=== PATIENT | male | born 2000 ===

== ENCOUNTER 2025-10-27 12:22 | Emergency (ER) | payer MEDICAID, OTHER ==
[~2025-10-27] VITALS: Ht 188 cm; Wt 180.0 kg
[2025-10-27 12:28] VITALS: O2SAT 99
[2025-10-27 14:44] VITALS: TEMP 36.6
[2025-10-27 15:30] LABS: CREATININE 0.6 mg/dL (0.6-1.3)
[2025-10-27 15:31] LABS: UREA NITROGEN BLOOD 6 mg/dL (9-23)
[2025-10-27 16:04] VITALS: BP 166/98; PULSE 80; RESP 14; O2SAT 100
== END 2025-10-27 16:06 | disposition home or self-care (01) ==
LOC: ER 12:22
DX: I10 Essential (primary) hypertension (principal)
CPT/HCPCS: 36415; 80048; 99283